=== PATIENT | male | born 1980 | race Caucasian/White ===

== ENCOUNTER 2016-08-12 15:11 | Outpatient (CLI) | payer BC ==
--- NOTE | 2016-08-12 17:08 | DIAGNOSTIC IMAGING REPORT ---
PROCEDURE: US LTD BREAST ULTRASOUND - RT INDICATION: RIGHT BREAST MASS TECHNIQUE: High resolution rosa scale and color Doppler sonographic images of the right breast. COMPARISON: None. FINDINGS: There is a 2.5 x 2.7 x 1 cm hypoechoic area with irregular margins in the retroareolar region of the right breast. Findings are compatible with benign gynecomastia. IMPRESSION: 1. Gynecomastia of the right breast. 2. Findings discussed with the patient. RESULT CODE: 2- Benign finding(s). A. A negative report should not delay biopsy if a dominant or clinically suspicious mass is present. 10-15% of cancers are not identified by x-ray. B. A negative report may reinforce clinical impression. C. Adenosis and dense breasts may obscure an underlying neoplasm. D. False positive reports average 6-10%. E.. A yearly screening mammogram is recommended. A reminder letter will be scheduled.
== END 2016-08-12 23:00 ==
LOC: MAM SRH 15:11
DX: N62 Hypertrophy of breast (principal)